=== PATIENT | male | born 1960 | race African-American/Black ===

== ENCOUNTER 2018-01-21 15:27 | Emergency (ER) | payer MEDICARE, MEDICAID ==
[~2018-01-21] VITALS: Ht 180.3 cm; Wt 115.7 kg
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
[2018-01-21] MEDS ORDERED: Acetaminophen 500mg (ES) tab ORAL ONE (15:30)
[2018-01-21 16:02] VITALS: BP 121/89
[2018-01-21 16:31] LABS: BASOPHILS % (AUTO) 0.8 % (0.0-2.0); EOSINOPHILS % (AUTO) 0.6 % (0.0-3.0); HEMATOCRIT 34.8 % (42.0-52.0); HEMOGLOBIN 11.2 G/DL (14.2-18.0); LYMPHOCYTES % (AUTO) 13.3 % (20.0-45.0); MEAN CORPUSCULAR VOLUME 86 FL (80-99); MONOCYTES % (AUTO) 6.5 % (1.0-10.0); NEUTROPHILS % (AUTO) 78.8 % (45.0-75.0); PLATELET COUNT 159 K/UL (150-450); RED BLOOD COUNT 4.06 M/UL (4.70-6.10); RED CELL DISTRIBUTION WIDTH 13.9 % (11.6-14.8)
[2018-01-21 16:59] LABS: ANION GAP 14 mmol/L (5-15); BLOOD UREA NITROGEN 67 mg/dL (7-18); CALCIUM 9.4 MG/DL (8.5-10.1); CARBON DIOXIDE 26 MMOL/L (21-32); CHLORIDE 95 MMOL/L (98-107); CREATININE 11.9 MG/DL (0.55-1.30); POTASSIUM 4.9 MMOL/L (3.5-5.1); SODIUM 135 MMOL/L (136-145)
[2018-01-21] MEDS ORDERED: TRAMADOL HCL50 MG ORAL (17:11)
[2018-01-21 17:14] LABS: ALANINE AMINOTRANSFERASE 21 U/L (12-78); ALBUMIN 3.8 G/DL (3.4-5.0); ALBUMIN/GLOBULIN RATIO 0.7 (1.0-2.7); ALKALINE PHOSPHATASE 212 U/L (46-116); ASPARTATE AMINO TRANSFERASE 16 U/L (15-37); BILIRUBIN,TOTAL 0.4 MG/DL (0.2-1.0); CKMB 9.3 NG/ML (0.0-3.6); CREATINE KINASE 420 U/L (26-308)
[2018-01-21 17:25] VITALS: BP 127/71
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
--- NOTE | 2018-01-22 10:46 | Diagnostic Imaging Report ---
Indication: Reason For Exam: PAIN Technique: 3 views of the left knee Comparison: None Findings:Suggestive slight patella loraine. No definite joint effusion. No acute fractures. No dislocations. The joint spaces are preserved Impression: No acute bony trauma
== END 2018-01-21 17:25 | disposition home or self-care (01) ==
LOC: EDBD 15:27 → EMR 15:30
DX: S20.219A Contusion of unspecified front wall of thorax, initial encounter (principal); S80.02XA Contusion of left knee, initial encounter; V43.52XA Car driver injured in collision with other type car in traffic accident, initial encounter; Y92.410 Unspecified street and highway as the place of occurrence of the external cause; N18.6 End stage renal disease; K57.30 Diverticulosis of large intestine without perforation or abscess without bleeding; Z90.5 Acquired absence of kidney; K76.0 Fatty (change of) liver, not elsewhere classified; K40.90 Unilateral inguinal hernia, without obstruction or gangrene, not specified as recurrent
CPT/HCPCS: 36415; 71250; 74176; 80053; 82550; 82553; 83690; 83880; 84484; 85025; 93005; 99284